=== PATIENT | female | born 1955 | race Caucasian/White ===

== ENCOUNTER 2016-09-21 16:43 | Emergency (ER) | payer MEDICARE ==
[~2016-09-21] VITALS: Ht 160 cm; Wt 88.9 kg
[~2016-09-21 16:43] MED LIST: ACETAMINOPHEN &1 TA1 PO; ALTACE10 MG PO; AMLO5TAB PO; APRISO0.375 GM PO; ASPIRIN 81MG TA81 MG PO; ATENOLOL25 MG PO; CARVEDILOL 1212.5 MG PO; CEPHALEXIN500 MG PO; CIPRO 500MG TA500 MG PO; COLESTIPOL1 GM PO; COREG 12.5 MG12.5 MG PO; COREG6.25 MG PO; CYMBALTA30 MG PO; DEXILANT30 MG PO; DIAZEPAM5 MG PO; FEXOFENADINE60 MG PO; FLAGYL500 M1 PO; FLAGYL500 MG PO; GABAPENTIN300 M1 PO; HYDROCODONE-APA1 TA1 PO; IMURAN50 MG PO; LASIX20 MG PO; LEVAQUIN500 MG PO; LISINOPRIL 10MG10 MG PO; LISINOPRIL HCTZ1 TAB; LOMOTIL 0.025 M1 TAB PO; MAXZIDE 25 MG-31 TAB PO; MEDROL 4MG. DOSE4 MG PO; NORVASC 10MG. T10 MG; PANTOPRAZOLE SO40 MG PO; PHENERGAN 12.12.5 M1 PO; PHENERGAN 25MG.25 M1 PO; PREDNISONE20 MG PO; PROMETHAZINE HC25 M1 PO; PROTONIX 40MG T40 MG PO; REGLAN 5MG TABLE5 MG PO; TESSALON PERLE100 MG PO; TYLENOL ES500 MG PO; VALIUM 5MG TABLE5 MG PO; VALIUM5 MG PO; VITAMIN D2000 I1 PO; VITAMIN D3400 I1 PO
--- NOTE | 2016-09-21 17:10 | Urgent Treatment Center Report ---
History of Present Issue Date/Time Seen by Provider 09/21/16 1706 Visit Reason Pt arrived:Walked Presenting Problem:PT STATES FEVER, DIARRHEA, BODY ACHES AND STOMACH ACHES FOR PAST THREE DAYS. STATES HAVING CHRONS BUT THAT DIARRHEA IS WORSE THAN USUAL. Location if Accident: Onset of symptoms date/time:/ or onset unknown for:MEDICAL HX UNKNOWN Have you (or family members/close friends) recently traveled outside the [place]? N If Yes, where/when: Have you had exposure to infectious disease within the past month? TB? Other? Specify: Source patient Exam Limitations no limitations Comment 60-year-old female presents today with a history of diarrhea for 3 days. Patient reports a history of Crohn's so she has chronic diarrhea that over the past 3 days his stated watery with the fever anywhere between 99 and 102. Patient denies any ill contacts. States stool is watery yellow colored. No blood or dark colored noted per patient. Patient states she had some Phenergan leftover that she's been taken for nausea. Today reports he feels weak. Patient reports tenderness in the abdomen but states this tenderness is constantly there related to her Crohn's. ALLERGIES Coded Allergies: cefixime (From SUPRAX) (I-RASH 01/20/16) oxytetracycline (From TERRAMYCIN) (I-RASH 01/20/16) penicillin G (SOB 01/20/16) Uncoded Allergies: IV CONTRAST (04/16/16) Home Medications Active Scripts Amlodipine Besylate (Amlodipine) 5 MG PO DAILY 30 Days Ref 2 Prov: 06/29/14 Carvedilol (Carvedilol 12.5MG) 12.5 MG PO BID 30 Days Ref 2 Prov: 06/29/14 HYDROCODONE/ACETAMINOPHEN (Hydrocodon-Acetaminophn 10-325) 1 TAB PO TID PRN PAIN #90 TAB Prov: 02/26/16 Reported Medications FEXOFENADINE HCL (Fexofenadine HCl) 60 MG PO DAILY Gabapentin 300 MG PO TIDP PRN NERVE PAIN #90 CAPSULE LISINOPRIL (Lisinopril) 10 MG PO DAILY Furosemide (Lasix) 20 MG PO DAILYP PROMETHAZINE HCL (Promethazine 25mg Tab) 12.5 MG PO Q4HP PRN N/V ASPIRIN (Aspirin) 81 MG PO DAILY History Medical History General CAD? Yes Angina: Yes [place]: No Hypertension? Yes Hyperlipidemia? No CHF? No DVT? No PE? No COPD? No Asthma? No Anemia? No GERD? No Gastric ulcers? No GI Bleed? No Hernia? No Thyroid Problems? No Hypothyroidism? No CVA? No Seizures? No Diabetes? No Renal Insuffiency? Yes UTI? No Stones? No BPH? No GB Disease: No Nephritic Syndrome? No Asplenia? No Hepatitis? No Sickle Cell Disease? No Arthritis? No Migraines? No Cataracts? No Glaucoma? No MRSA? No HIV? No TB? No Anxiety? Yes Depression? Yes Cancer? Yes Site: KIDNEY More? Yes Additional hx: CROHNS Immunization HX DT/Tetanus 5-10 Years Ago Flu 2013-FSN Pneumonia 12/18/2015 Surgical Hx Previous Surgery?Y KIDNEY REMOVED TUBAL BOWEL RESCETION X2 GALBLADDER AORTIC FEMORAL BYPASS X 2 BLADDER SLING Colon Procedures HEART CATH 2016 APPENDECTOMY Family History Family HX Diabetes Yes CAD Yes Hypertension Yes Hyperlipidemia Yes Cancer No TB No Social History Smoking Hx Smoker: Former Smoker Tobacco: No Packs/day < 1 Pack Alcohol Alcohol: No Review of Systems All Other Systems Reviewed and Negative Gastrointestinal see HPI, abdominal pain, diarrhea, nausea Physical Exam Vital Signs Vital Signs Date Time Temp Pulse Resp B/P Pulse O2 O2 Flow FiO2 Ox Delivery Rate 09/21 1648 98.2 67 20 115/64 96 - WBC >12,000 or <4,000 or 10% bands? 2 or more SIRS Criteria Met? B/P:115/64 MAP:81 Creatinine >2.0? UA output<0.5ml/kg/hr for 2 hrs? Platelet count >100,000? Lactate >2.0mmol/1? INR >1.2 or PTT > than 60 sec? Evidence of Organ Dysfunction? Provider documented clinical suspician of infection? Sepsis Criteria Count: 1 Sepsis Risk: General Appearance normal appearance, mild distress Eye Exam - bilateral eye normal exam, bilateral eye PERRL Ear, Nose, Throat hearing grossly normal, normal ENT inspection Respiratory Status Yes: trachea midline, chest symmetrical. No: respiratory distress. Lung Sounds bilateral: normal breath sounds, lungs clear. Cardiovascular normal exam, regular rate/rhythm Gastrointestinal soft, tenderness Neurologic alert, normal exam, oriented x 3 Medical Decision Making LABS/Meds/Orders Pt receiving controlled substance in ED? No Results/Orders Laboratory Tests 09/21/16 1710: Sodium 139, Potassium 3.7, Chloride 103, Carbon Dioxide 24, BUN 12, Creatinine 0.9, Estimated Creat Clear 93, Estimated GFR (MDRD) 64, Glucose 119 H, Calcium 8.1 L, Total Bilirubin 0.3, AST 29, ALT 30, Alkaline Phosphatase 130 H, Total Protein 6.8, Albumin 3.2 L, Globulin 3.6 H, Albumin/Globulin Ratio 0.9 L, WBC 5.6, RBC 4.44, Hgb 13.5, Hct 40.7, MCV 91.6, RDW 13.6, Plt Count 242, MPV 6.0 L , Gran % 60.0, Gran # 3.4, Lymphocytes % 31.2, Monocytes % 8.0, Eosinophils % 0.6, Basophils % 0.4, Lymphocytes # 1.8, Monocytes # 0.5, Eosinophils # 0.0, Basophils # 0.0, PUBS MCHC 33.2, MCH 30.4 09/21/16 165: Influenza Type A Ag NOT DETECTED, Influenza Type B Ag NOT DETECTED Orders Procedure Date/time Status STOOL OCCULT BLOOD 09/21 1704 Active DIARRHEA PANEL, PCR 09/21 1704 Active CBC WITH AUTO DIFF 09/21 1704 Complete CHEM 12 PROFILE 09/21 1704 Complete UTC FLU A,B 09/21 1656 Complete Progress UTC Progress Notes Date 09/21/16 Time 174 Comment Discussed patient with Dr. Gonzalez will transfer patient to the ER for eval and possible CAT scan to rule out obstruction.Flu negative Departure Departure Time of Disposition 1747 Disposition Still a Patient Clinical Impression Primary Impression: Diarrhea Qualifiers: Diarrhea type: unspecified type Qualified Code: R19.7 - Diarrhea, unspecified Condition STABLE Referrals Courtney MCRAE,Gustavo Do (Family) Patient Instructions Diarrhea (Alternative Therapy) Additional Instructions Discussed patient with Dr. Gonzalez in the ER will transfer patient over to the ER for eval and possible CAT scan to rule out a small bowel obstruction. IV started and UTC. Discharge Counseling Counseled pt/family regarding diagnosis, test results, home care, follow up needs at [phone]
[2016-09-21 17:16] LABS: HEMOGLOBIN 13.5 g/dL (12.2-16.2); LYMPH # 1.8 K/mm3 (0.7-4.5); LYMPH % 31.2 % (10-50.0)
[2016-09-21 18:01] VITALS: BP 134/81
--- NOTE | 2016-09-21 18:21 | Emergency Room Report ---
History of Present Illness Time Seen by MD Benavides Presenting Problem in Triage Pt arrived:Walked Presenting Problem:PT SENT FROM [facility] R/T FOR NEED TO CT SCAN. 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 Y Clinical Suspician of Infection? N Mental Status: 1 - Regular (Normal Baseline) Sepsis Risk:Low Sepsis Risk Have you (or family members/close friends) recently traveled outside the [place]? N If Yes, where/when: Have you had exposure to infectious disease within the past month? N TB? Other? Specify: Source patient, RN notes reviewed Exam Limitations no limitations Comment Long history of Crohn's disease and has had 2 bowel resections. Now comes to the [facility] and ED with flare of disease over the past 3 days. No longer on Immunosuppressive drugs due to fact that her GI doctor went into a private group and they do not take her insurance. Reportedly having worsening diarrhea, body aches and stomach pain over the past 3 days with temp between 99 and 102 degrees Cardiac Chest Pain Chest pain indicative of cardiac No ALLERGIES Coded Allergies: cefixime (From SUPRAX) (I-RASH 01/20/16) oxytetracycline (From TERRAMYCIN) (I-RASH 01/20/16) penicillin G (SOB 01/20/16) Uncoded Allergies: IV CONTRAST (04/16/16) Home Medications Active Scripts Amlodipine Besylate (Amlodipine) 5 MG PO DAILY 30 Days Ref 2 Prov: 06/29/14 Carvedilol (Carvedilol 12.5MG) 12.5 MG PO BID 30 Days Ref 2 Prov: 06/29/14 HYDROCODONE/ACETAMINOPHEN (Hydrocodon-Acetaminophn 10-325) 1 TAB PO TID PRN PAIN #90 TAB Prov: 02/26/16 Reported Medications FEXOFENADINE HCL (Fexofenadine HCl) 60 MG PO DAILY Gabapentin 300 MG PO TIDP PRN NERVE PAIN #90 CAPSULE LISINOPRIL (Lisinopril) 10 MG PO DAILY Furosemide (Lasix) 20 MG PO DAILYP PROMETHAZINE HCL (Promethazine 25mg Tab) 12.5 MG PO Q4HP PRN N/V ASPIRIN (Aspirin) 81 MG PO DAILY (Jose Daniel Gonzalez MD) History Medical History General CAD? Yes Angina: Yes [place]: No Hypertension? Yes Hyperlipidemia? No CHF? No DVT? No PE? No COPD? No Asthma? No Anemia? No GERD? No Gastric ulcers? No GI Bleed? No Hernia? No Thyroid Problems? No Hypothyroidism? No CVA? No Seizures? No Diabetes? No Renal Insuffiency? Yes End Stage Renal Disease? No UTI? No Stones? No BPH? No GB Disease: No Nephritic Syndrome? No Asplenia? No Hepatitis? No Sickle Cell Disease? No Arthritis? No Migraines? No Cataracts? No Glaucoma? No MRSA? No HIV? No TB? No Anxiety? Yes Depression? Yes Cancer? Yes Site: KIDNEY More? Yes Additional hx: CROHNS Immunization Hx DT/Tetanus 5-10 Years Ago Flu [id number] Flu Season Pneumonia 12/18/2015 Surgical Hx Previous Surgery?Y KIDNEY REMOVED TUBAL BOWEL RESCETION X2 GALBLADDER AORTIC FEMORAL BYPASS X 2 BLADDER SLING Colon Procedures HEART CATH 2016 APPENDECTOMY Family History Family Hx Diabetes Yes CAD Yes Hypertension Yes Hyperlipidemia Yes Cancer No TB No Social History Smoking Hx Smoker: Former Smoker Tobacco: No Packs/day < 1 Pack Alcohol Alcohol: No (Jose Daniel Gonzalez MD) Review of Systems All Other Systems Reviewed and Negative Constitutional see HPI Gastrointestinal see HPI (Jose Daniel Gonzalez MD) Physical Exam Vital Signs Vital Signs Date Time Temp Pulse Resp B/P Pulse O2 O2 Flow FiO2 Ox Delivery Rate 09/22 2155 98.3 72 18 146/90 94 09/21 214 98.3 72 18 146/90 94 09/22 2023 72 18 102/62 97 09/21 1925 98.3 70 18 114/59 97 09/21 1842 68 18 127/78 96 09/21 1801 98.8 67 18 134/81 96 09/21 1648 98.2 67 20 115/64 96 General Appearance normal appearance, mild distress Respiratory Status No: respiratory distress. Cardiovascular normal exam, regular rate/rhythm Gastrointestinal tenderness (in mid abdomen) Neurologic alert, power press tender II-XII nml as tested (Jose Daniel Gonzalez MD) Medical Decision Making LABS/Meds/Orders Pt receiving controlled substance in ED? No Results/Orders Laboratory Tests 09/21/161934: Stool Occult Blood NEGATIVE 09/21/161934: Stl Cyclospora species NOT DETECTED, Stool Rotavirus (PCR) NOT DETECTED, Stool Campylobacter PCR NOT DETECTED, Stool Giardia Lamblia PCR NOT DETECTED, Stl Norovirus GI/GII PCR NOT DETECTED, Adenovirus (PCR) NOT DETECTED, C. difficile Tox (PCR) NOT DETECTED, E. coli (PCR) NOT DETECTED, Yersinia (PCR) NOT DETECTED 09/21/16 1710: Sodium 139, Potassium 3.7, Chloride 103, Carbon Dioxide 24, BUN 12, Creatinine 0.9, Estimated Creat Clear 93, Estimated GFR (MDRD) 64, Glucose 119 H, Calcium 8.1 L, Total Bilirubin 0.3, AST 29, ALT 30, Alkaline Phosphatase 130 H, Total Protein 6.8, Albumin 3.2 L, Globulin 3.6 H, Albumin/Globulin Ratio 0.9 L, WBC 5.6, RBC 4.44, Hgb 13.5, Hct 40.7, MCV 91.6, RDW 13.6, Plt Count 242, MPV 6.0 L , Gran % 60.0, Gran # 3.4, Lymphocytes % 31.2, Monocytes % 8.0, Eosinophils % 0.6, Basophils % 0.4, Lymphocytes # 1.8, Monocytes # 0.5, Eosinophils # 0.0, Basophils # 0.0, PUBS MCHC 33.2, MCH 30.4 09/21/16 1657: Influenza Type A Ag NOT DETECTED, Influenza Type B Ag NOT DETECTED Current Medication Orders Sig/Rk Start time Last Medication Dose Route Stop Time Status Admin Sodium Chloride 1,000 ML .STK-MED ONE 09/21 1925 DC IV Diphenhydramine HCl 25 MG ONCE ONE 09/21 1814 DC 09/21 IV 09/21 Methylprednisolone 125 MG ONCE ONE 09/21 1814 DC 09/21 Sodium Succinate IV 09/21 Sodium Chloride 10 ML PRN PRN 09/21 1814 DCD IV 09/22 1805 Diphenhydramine HCl 0 .STK-MED ONE 09/21 1806 DC .ROUTE Methylprednisolone 0 .STK-MED ONE 09/21 1806 DC Sodium Succinate .ROUTE Ondansetron HCl 0 .STK-MED ONE 04/15 1805 DC .ROUTE Sodium Chloride 1,000 ML .STK-MED ONE 09/21 1805 DC IV Diatrizoate Meglum/ 0 .STK-MED ONE 09/21 1804 DC Diatrizoate Sod .ROUTE Diatrizoate Meglum/ 30 ML ONCE ONE 09/21 1800 DC 09/21 Diatrizoate Sod PO 09/21 1801 1818 Ondansetron HCl 4 MG ONCE ONE 09/21 1800 DC 09/21 IV 09/21 1801 1819 Sodium Chloride 1,000 ML .Q1H1M 09/21 1800 DC 09/21 IV 09/21 1900 1818 Sodium Chloride 10 ML PRN PRN 09/21 1800 DCD IV 09/22 1750 Sodium Chloride 1,000 ML .Q4H 09/21 1800 DC 09/21 IV 09/21 2159 1928 Sodium Chloride 10 ML PRN PRN 09/21 1800 DCD IV 09/22 1758 Orders Procedure Date/time Status DIET-NOTHING BY MOUTH 09/22 B Active Decision to admit 09/[address] ABD & PELVIS W/O CONTRAST 09/21 1948 Active IV SALINE LOCK 09/[address] ABD/PELVIS REQ 09/21 1800 Complete STOOL OCCULT BLOOD 09/21 1705 Complete DIARRHEA PANEL, PCR 09/21 1705 Complete CBC WITH AUTO DIFF 09/21 1705 Complete CHEM 12 PROFILE 09/21 1705 Complete UTC FLU A,B 09/21 1657 Complete XRAY/CT/US XRAY/CT/US CT abdomen, pelvis Comment CT scan interpreted by [facility] radiologist. Faxed report received and reviewed: Bilateral adrenal adenomas. Abnormal small bowel loop in the RIGHT lower quadrant with apparent associated scarring or mass. For example carcinoid tumor could have this appearance. Clinical correlation is recommended. Narrative: There is a cluster of small bowel loops in the RIGHT lower quadrant just proximal to the ileocolic anastomosis. The bowel is narrowed at this point. There is centered around a soft tissue density which could be scarring or mass. A carcinoid tumor could have this appearance. Recommend clinical correlation. Progress - Discussed patient with Dr. Gonzalez in the ER will transfer patient over to the ER for eval and possible CAT scan to rule out a small bowel obstruction. IV started and UTC. Discussed with Dr. Abernathy and he will make final disposition when CT returns 8:00 PM: At shift change, patient report received from Dr. Gonzalez, and care of the patient assumed by me at this time. 8:20 PM: Patient seen and examined. She complains of mild diffuse abdominal pain. Abdomen is very soft and minimally tender. Bowel sounds active. She denies any needs at this time. She tells me that she has had symptoms since Friday 4 days ago. She thought maybe she just had a virus. She has had fever, dry heaves, diarrhea, and generalized abdominal pain. Awaiting CT report. 9:10 PM: I have discussed the case with Dr. Valdez who agrees to admit the patient to the hospital. We discussed the patient's clinical information, including history, exam, laboratory and radiology results and ED course. Per hospital procedure, I will write temporary bridge inpatient orders on the patient. Specific orders requested by the admitting physician: Intravenous steroids, hydration, surgical consult in the morning 9:35 PM: Discussed plan with patient. She refuses admission to the hospital. I explained the reason for admission. It appears she has an exacerbation of her Crohn's, abnormality of the small bowel that needs to be investigated. Areas risk of bowel obstruction and perforation. She says she understands this but still refuses to be admitted. She has to pick her son up from work tonight. She says she will follow-up with Dr. Valdez and surgeon as an outpatient and return if she worsens. I will treat her with steroids orally. (Josemanuel MCRAE, Tru) Departure Departure Time of Disposition 1955 Condition STABLE Referrals Courtney MCRAE,Gustavo Do (Family) Discharge Counseling Counseled pt/family regarding diagnosis, test results, home care, follow up needs ED Critical Care Critical Care No If Critical Care minutes are documented, the time involved in the performance of seperately reportable procedures was not counted toward critical care time documented. I directly delivered medical care to this critically ill and/or injured patient. Timely evaluation and treatment was necessary to address the significant organ system(s) dysfunction present in this patient. (Lisa MCRAE,Jose Daniel) Departure Disposition Against Medical Advice Clinical Impression Primary Impression: Crohns disease Qualifiers: Gastrointestinal tract location: large intestine Digestive disease complication type: unspecified complication Qualified Code: K50.119 - Crohn's disease of large intestine with unspecified complications Patient Instructions DI for Abdominal Pain-Adult, DI for Crohn's Disease Additional Instructions See Dr. Valdez and Dr. Dobbins (surgeon) next week. Additional instructions for ABDOMINAL PAIN: Return immediately if worsening abdominal pain, vomiting, shortness of breath, fever, vomiting of blood or abdominal distention. Prescriptions Current Visit Scripts Prednisone (Prednisone 10MG) 10 MG PO DAILY #27 TAB 6 po on days 1-2, then decrease dose by 1 pill per day until gone (Tru Abernathy MD) at 1957 at 7024
[2016-09-21 19:50] LABS: AEROMONAS NOT DETECTED (NOT DETECTE); CYCLOSPORA CAYETANENSIS NOT DETECTED (NOT DETECTE); E COLI O157 NOT DETECTED (NOT DETECTE); ENTEROAGGREGATIVE E COLI NOT DETECTED (NOT DETECTE); ENTEROPATHOGENIC E COLI NOT DETECTED (NOT DETECTE); ENTEROTOXIGENIC E COLI NOT DETECTED (NOT DETECTE); NOROVIRUS NOT DETECTED (NOT DETECTE); SAPOVIRUS NOT DETECTED (NOT DETECTE); SHIGA-LIKE TOXIN PROD. E COLI NOT DETECTED (NOT DETECTE); SHIGELLA/ENTEROINVASIVE E COLI NOT DETECTED (NOT DETECTE); VIBRIO CHOLERAE NOT DETECTED (NOT DETECTE)
[2016-09-21 19:58] LABS: STOOL OCCULT BLOOD NEGATIVE (NEG)
[2016-09-21] MEDS ORDERED: PREDNISONE 10MG10 MG PO (21:39)
[2016-09-21 21:52] LABS: ASTROVIRUS DETECTED (NOT DETECTE)
[2016-09-21 21:56] VITALS: BP 146/90
--- NOTE | 2016-09-22 15:32 | RADIOLOGY REPORT PS360 ---
CT ABD PELVIS W/O CONTRAST COMPARISON: CT scan abdomen pelvis 12/16/2015 HISTORY: Abdominal pain history of Crohn's disease previous colon surgery, cholecystectomy and appendectomy and left nephrectomy TECHNIQUE: Multiple axial scans obtained from the diaphragms the pelvic floor and were performed with oral contrast only. Sagittal And coronal reformats were evaluated as well. FINDINGS: Scans through the lower chest show clear lower lung schilling. There is mild generalized cardio megaly. There is no pleural fluid. The liver spleen stomach and pancreas appear normal. There are surgical clips in the gallbladder bed. Again noted are small masses involving both adrenal glands likely adenomas in view of the CT number is. The left kidney is missing, the right kidney is normal size with no calculi and no obstructive uropathy. There is deformity of the distal small bowel near the cecum probably due to post surgical scarring. There is no obvious dilatation of the small bowel loops and there is prominent oral contrast in the cecum and ascending colon. The uterus is normal size and in the midline. Urinary bladder is partially decompressed but otherwise normal, there is no free fluid in the pelvis. The lumbar spine and bony pelvis appear normal. IMPRESSION: Probable postsurgical scarring at the site of an ileocolic anastomosis 2. Post left nephrectomy, stable and likely bilateral adrenal adenomas. I agree with the [facility] report.
== END 2016-09-21 21:59 | disposition left against medical advice (07) ==
LOC: UTC 16:43 → ER 16:45 → UTC 16:45 → ER 21:28 → 2ND 21:28
PROVIDERS: Nurse Practitioner Family
DX: K50.119 Crohn's disease of large intestine with unspecified complications (principal)
CPT/HCPCS: J2405

== ENCOUNTER → 2017-04-22 | Day surgery (SDC) | payer MEDICARE ==
[~2017-04-22] VITALS: Ht 160 cm; Wt 86.2 kg
[~2017-04-22] MED LIST changes: +NEURONTIN600 M1 PO; +PREDNISONE 10MG10 MG PO
[2017-04-22 16:05] VITALS: BP 146/76
[2017-04-22 16:16] VITALS: BP 146/76; BP 190/95
--- NOTE | 2017-04-22 16:25 | Procedure Note ---
Procedure detail Date of procedure: 04/22/17 Anesthesiologist: Bipin Lee Complications: None Pre-procedure diagnosis: Bilateral sacroiliitis. Post-procedure diagnosis: Same. Indications for procedure: Patient presents today for bilateral SI joint injections. She has responded significantly in terms of relief in her bilateral hip pain with previous SI joint injections. Procedure detail: Informed consent was obtained and the risks and benefits of the procedure were explained to the patient. The patient was taken to the procedure room and noninvasive monitors were placed including a noninvasive blood pressure cuff and pulse oximeter. The patient was placed prone on the procedure table. Both hips were cleansed using Betadine as a cleansing solution. C-arm fluoroscopy was used to view the right sacroiliac joint. The skin and subcutaneous tissues were anesthetized using lidocaine 1.5% and a 25-gauge needle. After this, a 22-gauge spinal needle was inserted under fluoroscopic guidance into the inferior aspect of the right sacroiliac joint. Omnipaque dye was injected and good spread was seen throughout the joint. After this, approximately 5 mL of bupivacaine, 0.25% and Depo-Medrol, 40 mg was incrementally injected into the right sacroiliac joint. We then moved to the left sacroiliac joint. The skin and subcutaneous tissues were anesthetized using lidocaine 1.5% and a 25-gauge needle. After this, a 22- gauge spinal needle was inserted under fluoroscopic guidance into the inferior aspect of the left sacroiliac joint. Omnipaque dye was injected and good spread was seen throughout the joint. After this, approximately 5 mL of bupivacaine, 0.25% and Depo-Medrol, 40 mg was incrementally injected into the left sacroiliac joint. The patient tolerated the procedure well with no complications. The patient was observed in the Pain Clinic and then was discharged home neurologically intact. Plan and disposition: Patient was reevaluated 10 minutes post procedure. She reports 90 percent improvement terms of her bilateral hip pain. She'll return to see us in pain clinic for further evaluation. at [id number]
[2017-04-22 16:30] VITALS: BP 133/82
== END ==
LOC: PM 03-25 14:30
PROC: 3E0U33Z Introduction of Anti-inflammatory into Joints, Percutaneous Approach (ICD-10-PCS; principal; 2017-04-22)
PROC: 3E0U3BZ Introduction of Anesthetic Agent into Joints, Percutaneous Approach (ICD-10-PCS; 2017-04-22)
DX: M46.1 Sacroiliitis, not elsewhere classified (principal)
CPT/HCPCS: G0260; J1040